=== PATIENT | male | born 1960 | race African-American/Black ===

== ENCOUNTER 2020-05-05 11:42 | Emergency (ER) | payer OTHER ==
[~2020-05-05] VITALS: Ht 177.8 cm; Wt 107.0 kg
[2020-05-05] MEDS ORDERED: ACETAMINOPHEN 325MG TABLET PO STA (12:39)
[2020-05-05 14:22] VITALS: BP 139/89
== END 2020-05-05 14:25 | disposition home or self-care (01) ==
LOC: ER 11:42
DX: U07.1 COVID-19 (principal); E11.9 Type 2 diabetes mellitus without complications; I10 Essential (primary) hypertension
CPT/HCPCS: 71045; 87635; 93005; 99283; 99285

== ENCOUNTER 2020-09-07 11:56 | Emergency (ER) | payer OTHER ==
[~2020-09-07] VITALS: Ht 182.9 cm; Wt 122.0 kg
[2020-09-07] MEDS ORDERED: KETOROLAC 60MG/2ML VIAL IM ONE (12:15)
[2020-09-07 13:17] VITALS: BP 146/78
[2020-09-07] MEDS ORDERED: NAPR-681 MT (13:57)
[2020-09-07] MEDS ORDERED: METH-773 MT (13:57)
== END 2020-09-07 14:09 | disposition home or self-care (01) ==
LOC: ER 11:56
DX: S16.1XXA Strain of muscle, fascia and tendon at neck level, initial encounter (principal); S39.012A Strain of muscle, fascia and tendon of lower back, initial encounter; E11.9 Type 2 diabetes mellitus without complications; I10 Essential (primary) hypertension; V49.3XXA Car occupant (driver) (passenger) injured in unspecified nontraffic accident, initial encounter; Y93.89 Activity, other specified; Y92.410 Unspecified street and highway as the place of occurrence of the external cause
CPT/HCPCS: 72040; 96372; 99283; J1885

== ENCOUNTER 2023-07-01 00:15 | Emergency (ER) | payer MEDICAID ==
[~2023-07-01] VITALS: Ht 182.9 cm; Wt 111.0 kg
[~2023-07-01 00:15] MED LIST: METH-773 MT; NAPR-681 MT
[2023-07-01 00:30] VITALS: O2SAT 100
[2023-07-01 02:34] VITALS: BP 150/96; PULSE 93; RESP 20; TEMP 97.9
== END 2023-07-01 02:43 | disposition home or self-care (01) ==
LOC: ER 00:15
DX: R00.2 Palpitations (principal); R00.0 Tachycardia, unspecified; E11.9 Type 2 diabetes mellitus without complications; I10 Essential (primary) hypertension; V43.52XA Car driver injured in collision with other type car in traffic accident, initial encounter; Y93.89 Activity, other specified; Y92.89 Other specified places as the place of occurrence of the external cause; Y99.8 Other external cause status
CPT/HCPCS: 99283; Z7610